=== PATIENT | female | born 1990 | race African-American/Black ===

== ENCOUNTER 2017-03-29 19:24 | Emergency (ER) | payer BC ==
[~2017-03-29] VITALS: Ht 154.9 cm; Wt 68.0 kg
[2017-03-29] MEDS ORDERED: SODIUM CHLORIDE 0.9% 1,000 ML IV ONE (22:54)
[2017-03-29] MEDS ORDERED: ONDANSETRON HCL 4MG/2ML VIAL IV STA (22:54)
[2017-03-29 23:20] LABS: BASOPHILS % 0.5 % (0.0-2.0); EOSINOPHILS % 0.2 % (0.0-5.0); HEMATOCRIT. 34.6 % (36.0-48.0); HEMOGLOBIN. 11.9 g/dL (12.0-16.0); LYMPHOCYTES % 16.1 % (20.0-50.0); MEAN CORPUSCULAR HEMOGLOBIN 28.7 pg (28.0-32.0); MEAN CORPUSCULAR VOLUME 83.8 fL (81.0-99.0); MEAN PLATELET VOLUME 7.2 fl (7.4-10.4); MONOCYTES % 5.8 % (2.0-8.0); NEUTROPHILS % 77.4 % (40.0-76.0); PLATELET 288 x1000/uL (130-400); RED BLOOD CELL COUNT 4.13 mill/uL (4.2-5.4); RED CELL DISTRIBUTION WIDTH 13.2 % (11.6-14.6)
[2017-03-29 23:40] LABS: CARBON DIOXIDE 23 mEq/L (21-32); CHLORIDE 104 mEq/L (98-107)
[2017-03-29 23:47] LABS: B-HCG QUANTITATIVE 58657 mIU/mL (<3)
[2017-03-30] MEDS ORDERED: SODIUM CHLORIDE 0.9% 1,000 ML IV ONE (01:36)
[2017-03-30 02:27] LABS: CLARITY URINE CLEAR (CLEAR); COLOR URINE YELLOW (YELLOW); GLUCOSE URINE NEGATIVE (NEGATIVE); KETONES URINE 3+ (NEGATIVE); LEUKOCYTE ESTERASE URINE NEGATIVE (NEGATIVE); NITRITE URINE NEGATIVE (NEGATIVE); OCCULT BLOOD URINE NEGATIVE (NEGATIVE); PH URINE 5.5 (4.5-8.0); PROTEIN URINE NEGATIVE (NEGATIVE); SPECIFIC GRAVITY URINE 1.016 (1.005-1.030); UROBILINOGEN URINE 0.2 E.U./dL (0.2-1.0)
[2017-03-30 06:13] VITALS: BP 112/64
== END 2017-03-30 06:16 | disposition home or self-care (01) ==
LOC: ER 22:02
DX: O21.1 Hyperemesis gravidarum with metabolic disturbance (principal); O26.891 Other specified pregnancy related conditions, first trimester; K52.89 Other specified noninfective gastroenteritis and colitis; R10.84 Generalized abdominal pain; R03.0 Elevated blood-pressure reading, without diagnosis of hypertension; Z3A.13 13 weeks gestation of pregnancy
CPT/HCPCS: 36415; 76801; 80053; 81003; 83690; 84702; 85025; 96361; 96374; 99285; J2405; J7030

== ENCOUNTER 2021-01-17 12:31 | Observation (INO) | payer BC, MEDICAID ==
[~2021-01-17] VITALS: Ht 157.5 cm; Wt 81.6 kg
[2021-01-17] MEDS ORDERED: LACTATED RINGERS 1,000 ML IV SCH (13:15)
== END 2021-01-17 15:40 | disposition home or self-care (01) ==
LOC: 8 EST LDRP 12:31
PROVIDERS: ADMIT Obstetrics & Gynecology; ATTEND Obstetrics & Gynecology
DX: O9A.213 Injury, poisoning and certain other consequences of external causes complicating pregnancy, third trimester (principal); O26.853 Spotting complicating pregnancy, third trimester; Z3A.30 30 weeks gestation of pregnancy; V49.9XXA Car occupant (driver) (passenger) injured in unspecified traffic accident, initial encounter; Y93.89 Activity, other specified; Y92.488 Other paved roadways as the place of occurrence of the external cause
CPT/HCPCS: 59025; 76805; 96360; 96361; G0378; 99281

== ENCOUNTER 2022-10-30 12:04 | Emergency (ER) | payer MEDICAID ==
[~2022-10-30] VITALS: Ht 167.6 cm; Wt 80.0 kg
[2022-10-30] MEDS ORDERED: ACETAMINOPHEN 325MG TABLET PO STA (15:00)
[2022-10-30] MEDS ORDERED: BACITRACIN ZINC OINT UDPKT TOP ONE (15:00)
[2022-10-30] MEDS ORDERED: LIDOCAINE HCL/PF 1% 10 MG/ML 5ML VIAL INFIL ONE (15:00)
[2022-10-30] MEDS ORDERED: ONDANSETRON 4MG ODT PO STA (15:00)
[2022-10-30] MEDS ORDERED: NAPR-681 PO (16:49)
[2022-10-30] MEDS ORDERED: MECL-159 MT (16:49)
[2022-10-30 17:45] VITALS: BP 127/86
== END 2022-10-30 17:47 | disposition home or self-care (01) ==
LOC: ER 12:04
DX: S01.511A Laceration without foreign body of lip, initial encounter (principal); G43.909 Migraine, unspecified, not intractable, without status migrainosus; Z98.890 Other specified postprocedural states; Z86.59 Personal history of other mental and behavioral disorders; Y04.0XXA Assault by unarmed brawl or fight, initial encounter; Y93.89 Activity, other specified; Y92.89 Other specified places as the place of occurrence of the external cause; Y99.8 Other external cause status
CPT/HCPCS: 12011; 70450; 70486; 99284; J3490; Q0162

== ENCOUNTER 2022-11-05 09:30 | Emergency (ER) | payer MEDICAID ==
[~2022-11-05] VITALS: Ht 157.5 cm; Wt 78.0 kg
[~2022-11-05 09:30] MED LIST: MECL-159 MT; NAPR-681 PO
[2022-11-05 12:20] VITALS: BP 114/72
== END 2022-11-05 13:12 | disposition home or self-care (01) ==
LOC: ER 09:36
DX: Z48.02 Encounter for removal of sutures (principal); G43.909 Migraine, unspecified, not intractable, without status migrainosus; I49.8 Other specified cardiac arrhythmias; Z98.890 Other specified postprocedural states
CPT/HCPCS: 93005; 99283

== ENCOUNTER 2023-10-23 11:38 | Emergency (ER) | payer MEDICAID ==
[~2023-10-23] VITALS: Ht 165.1 cm; Wt 63.0 kg
[~2023-10-23 11:38] MED LIST changes: -MECL-159 MT; +MECL-299 MT
[2023-10-23 11:45] VITALS: BP 117/75; PULSE 87; RESP 20; TEMP 98.4; O2SAT 97
[2023-10-23] MEDS ORDERED: PSEU-207 MT (14:55)
== END 2023-10-23 15:18 | disposition home or self-care (01) ==
LOC: ER 11:38
DX: B34.9 Viral infection, unspecified (principal)
CPT/HCPCS: 71045; 99283

== ENCOUNTER 2025-02-06 03:45 | Emergency (ER) | payer MEDICAID ==
[~2025-02-06] VITALS: Ht 160 cm; Wt 78.6 kg
[~2025-02-06 03:45] MED LIST changes: +PSEU-207 MT
[2025-02-06 03:53] VITALS: O2SAT 97
[2025-02-06 03:54] VITALS: BP 110/82; PULSE 98; RESP 18; TEMP 37.3; O2SAT 97
[2025-02-06] MEDS ORDERED: AMOX1TAB16 MT (04:06)
[2025-02-06] MEDS ORDERED: BENZ100C86 MT (04:06)
[2025-02-06] MEDS: AMOXICILLIN/POTASSIUM CLAVULANATE 875/125MG TAB PO ONE (04:19)
== END 2025-02-06 06:01 | disposition home or self-care (01) ==
LOC: ER 03:45
DX: J32.9 Chronic sinusitis, unspecified (principal); Z20.822 Contact with and (suspected) exposure to COVID-19; Z98.51 Tubal ligation status; Z79.899 Other long term (current) drug therapy; Z98.890 Other specified postprocedural states
CPT/HCPCS: 87426; 99283

== ENCOUNTER 2025-09-21 10:18 | Emergency (ER) | payer MEDICAID ==
[~2025-09-21] VITALS: Ht 167.6 cm; Wt 70.0 kg
[~2025-09-21 10:18] MED LIST changes: +AMOX1TAB16 MT; +BENZ100C86 MT; -PSEU-207 MT; +PSEU-307 MT
[2025-09-21 10:23] VITALS: TEMP 36.8; O2SAT 98
[2025-09-21 10:53] LABS: BASOPHILS % 0.6 % (0.0-2.0); EOSINOPHILS % 0.4 % (0.0-5.0); HEMATOCRIT. 42.5 % (36.0-48.0); HEMOGLOBIN. 14.3 g/dL (12.0-16.0); LYMPHOCYTES % 25.6 % (20.0-50.0); MEAN PLATELET VOLUME 7.7 fl (7.4-10.4); MONOCYTES % 6.2 % (2.0-8.0); NEUTROPHILS % 67.2 % (40.0-76.0); PLATELET 381 x1000/uL (130-400); RED BLOOD CELL COUNT 4.92 mill/uL (4.2-5.4); RED CELL DISTRIBUTION WIDTH 13.2 % (11.6-14.6)
[2025-09-21 11:11] LABS: CREATININE 0.8 mg/dL (0.6-1.0)
[2025-09-21 11:12] LABS: UREA NITROGEN BLOOD 8 mg/dL (9-23)
[2025-09-21] MEDS: FAMOTIDINE 20MG TABLET PO SCH (11:15)
[2025-09-21] MEDS: MAGNESIUM/ALUMINUM HYDROXIDE/SIMETHICONE 30ML UDC PO ONE (11:37)
[2025-09-21] MEDS: ACETAMINOPHEN 325MG TABLET PO ONE (11:38)
[2025-09-21] MEDS: PANTOPRAZOLE 40MG DR TABLET PO ONE (11:43)
[2025-09-21 12:10] LABS: BG DEOXYHEMOGLOBIN 15.4 % (0.0-5.0)
[2025-09-21 12:15] LABS: CLARITY URINE CLEAR (CLEAR); COLOR URINE YELLOW (YELLOW); GLUCOSE URINE NEGATIVE (NEGATIVE); KETONES URINE NEGATIVE (NEGATIVE); LEUKOCYTE ESTERASE URINE NEGATIVE (NEGATIVE); NITRITE URINE NEGATIVE (NEGATIVE); OCCULT BLOOD URINE NEGATIVE (NEGATIVE); PH URINE 6.0 (4.5-8.0); PROTEIN URINE NEGATIVE (NEGATIVE); SPECIFIC GRAVITY URINE 1.015 (1.005-1.030); UROBILINOGEN URINE 0.2 E.U./dL (0.2-1.0)
[2025-09-21] MEDS: SODIUM CHLORIDE 0.9% 1,000 ML IV ONE (16:01)
[2025-09-21] MEDS: IOHEXOL-300 100 ML BOTTLE ONE (16:02)
[2025-09-21 16:18] VITALS: BP 130/93; PULSE 76; RESP 16; O2SAT 100
== END 2025-09-21 16:21 | disposition home or self-care (01) ==
LOC: ER 10:18
DX: R10.13 Epigastric pain (principal); Z98.51 Tubal ligation status; Z98.890 Other specified postprocedural states
CPT/HCPCS: 80048; 81003; 81025; 83605; 83690; 85025; 36415; 74177; 82375; 82803; 99285; Q9967; J7030; Z7610; 99284